=== PATIENT | female | born 1950 | race Caucasian/White ===

== ENCOUNTER → 2021-05-29 | Outpatient (CLI) | payer MEDICARE ==
[~2021-05-29] MED LIST: BUDESONIDE0.5 MG/2 M NEB; CELEXA20 MG PO; FLONASE 0.05% N16 GM; IPRAT-ALBUT 0.5-3 ML INH; IPRAT-ALBUT 0.5-3 ML NEB; LOVENOX SY40 MG/0.4 SQ; MELATONIN10 MG PO; PERCOCET 10-321 EACH PO; PREDNISONE50 MG PO; SINGULAIR10 MG PO; SYMBICORT 160-1 INHA INH; TAMIFLU 75 MG C75 MG PO; ZYRTEC10 M3 PO
== END ==
LOC: KOH-I 10:23
DX: Z87.891 Personal history of nicotine dependence (principal); R91.1 Solitary pulmonary nodule
CPT/HCPCS: 71271

== ENCOUNTER → 2022-02-25 | Outpatient (CLI) | payer MEDICARE | LOC: RAD 13:22 | DX: R06.02 Shortness of breath (principal); J44.9 Chronic obstructive pulmonary disease, unspecified | CPT/HCPCS: 71046 ==